=== PATIENT | female | born 1985 | race Hispanic/Latino ===

== ENCOUNTER 2017-03-08 22:30 | Emergency (ER) | payer SELFPAY ==
[2017-03-08 22:31] VITALS: BMI 24.7
[2017-03-08 22:37] VITALS: BP 106/61; PULSE 109; RESP 18; TEMP 98; O2SAT 100
--- NOTE | 2017-03-08 23:07 | ED PDOC ---
HPI: Back Time Seen by Provider: 03/08/17 22:43 Chief Complaint (Nursing): Back Pain Additional History Per: Patient Additional Complaint(s): Pt is a 31 y/o female presenting to the ED with back pain and anxiety. States she has been having back pain for the past month due to a fall off a ladder. Takes percocet for pain but did not take any today. States pain is generalized over entire back. Denies urinary retention or any focal neurological defecits. Denies recent alochol, cocaine, heroine, or any other illicit druge use. Was brought by police escort as patient had warrant out for her arrest. Additionally , pt states she is having severe anxiety. Denies any suicidal ideational. Past Medical History Vital Signs: Last Vital Signs Temp 98.0 F 03/08/17 22:33 Pulse 109 H 03/08/17 22:33 Resp 18 03/08/17 22:33 BP 106/61 03/08/17 22:33 Pulse Ox 100 03/08/17 22:33 - Medical History PMH: Anxiety, Back Problems, Depression, Chronic Pain (Back and Left Shoulder) Denies: Diabetes, Hepatitis, HIV, HTN, Chronic Kidney Disease, Seizures, Sexually Transmitted Disease - Family History Family History: States: Unknown Family Hx - Home Medications Home Medications: Ambulatory Orders Medication Instructions Recorded Tramadol HCl [Ultram] 50 mg PO Q6 PRN #30 tab 08/03/15 Alprazolam [Xanax] 2 mg PO TID PRN 02/01/16 oxyCODONE/Acetaminophen [Percocet 1 tab PO DAILY PRN 02/01/16 5/325 mg Tab] - Allergies Allergies/Adverse Reactions: Allergies Allergy/AdvReac Type Severity Reaction Status Date / Time No Known Allergies Allergy Verified 08/03/15 08:21 Review of Systems Constitutional: Negative for: Fever, Chills, Weakness Cardiovascular: Negative for: Chest Pain Respiratory: Negative for: Cough, Shortness of Breath Gastrointestinal: Negative for: Nausea, Vomiting, Abdominal Pain Genitourinary Female: Negative for: Dysuria, Incontinence Neurological: Negative for: Weakness, Confusion, Seizures Psych: Positive for: Anxiety. Negative for: Psychosis, Suicidal ideation Physical Exam - Reviewed Nursing Documentation Reviewed: Yes Vital Signs Reviewed: Yes - Physical Exam Appears: Positive for: Well, No Acute Distress (Seems comfortable) Head Exam: Positive for: ATRAUMATIC Neck: Positive for: Normal Cardiovascular/Chest: Positive for: Regular Rate, Rhythm. Negative for: Chest Non Tender, Murmur Respiratory: Positive for: Normal Breath Sounds. Negative for: Accessory Muscle Use, Wheezing Pulses-Radial (L): 2+ Pulses-Radial (R): 2+ Gastrointestinal/Abdominal: Positive for: Normal Exam, Soft. Negative for: Bowel Sounds, Tenderness Back: Positive for: Other (generalized back pain) - ECG O2 Sat by Pulse Oximetry: 100 Medical Decision Making Medical Decision Makin31 y/o with hx of depression, anxiety presents to ED with complaints of back pain and anxiety x1 day. Pt was recently admitted on 02/03 for Benzo and PCP overdose and left AMA after a 4 day stay. Currently under police custody, was arrested today due to a warrant. ED Course: Crisis Evaluation= cleared for D/C Disposition - Clinical Impression Clinical Impression: Adjustment disorder - Disposition Disposition: Transfer of Care (Police Custody, incarceration) Disposition Time: 02:36 Condition: FAIR Additional Instructions: Patient is medically and psychiatrically stable for incarceration Instructions: Stress (ED) Forms: [employer] ([place])
== END 2017-03-09 00:54 | disposition home or self-care (01) ==
LOC: H.ER 22:30
DX: F43.20 Adjustment disorder, unspecified (principal); Z02.89 Encounter for other administrative examinations